=== PATIENT | male | born 2000 | race Caucasian/White ===

== ENCOUNTER 2022-10-25 12:33 | Day surgery (SDC) | payer BC, OTHER ==
[~2022-10-25] VITALS: Ht 185.4 cm; Wt 76.7 kg
[~2022-10-25 12:33] MED LIST: FAMO20TA5 PO; NS 1,000 ML IV ONE; OMEP40CA5 PO
[2022-10-25] MEDS ORDERED: fentaNYL 100 MCG/2 ML INJECTION As Ordered ONE (14:57)
[2022-10-25] MEDS ORDERED: LIDOCAINE 2% 100MG/5ML SDV (FOR ANES.) As Ordered ONE (14:57)
[2022-10-25] MEDS ORDERED: propofoL 200 MG/20 ML VIAL As Ordered ONE ×2 (14:57→15:02)
[2022-10-25 15:35] VITALS: BP 139/83
== END 2022-10-25 15:46 | disposition home or self-care (01) ==
LOC: M OPP 12:33
PROVIDERS: ATTEND Internal Medicine Gastroenterology
DX: K29.70 Gastritis, unspecified, without bleeding (principal); R12 Heartburn; Z79.899 Other long term (current) drug therapy
CPT/HCPCS: 43239; 88305; J3010

== ENCOUNTER → 2022-12-18 | Outpatient (CLI) | payer BC, OTHER ==
[~2022-12-18] MED LIST changes: +GLUCAGON INJ 1MG VIAL As Ordered ONE; +ISOVUE-370 76% 100ML VIAL As Ordered ONE; +NEULUMEX 0.1% SUSPENSION 450ML BOTTLE (FORMERLY VOLUMEN) As Ordered ONE; -NS 1,000 ML IV ONE
== END ==
LOC: M RAD 07:34
PROVIDERS: ATTEND Physician Assistant Medical
DX: R63.4 Abnormal weight loss (principal); R10.84 Generalized abdominal pain; R14.0 Abdominal distension (gaseous)
CPT/HCPCS: 74177; J1610; Q9967

== ENCOUNTER → 2023-01-03 | Outpatient (CLI) | payer BC, OTHER ==
[~2023-01-03] MED LIST changes: -GLUCAGON INJ 1MG VIAL As Ordered ONE; -ISOVUE-370 76% 100ML VIAL As Ordered ONE; -NEULUMEX 0.1% SUSPENSION 450ML BOTTLE (FORMERLY VOLUMEN) As Ordered ONE
[2023-01-03 17:16] LABS: THYROID STIMULATING HORMONE 2.1 uIU/ML (0.55-4.78)
[2023-01-03 17:17] LABS: FREE T4 1.39 NG/DL (0.89-1.76)
== END ==
LOC: M LAB 15:33
PROVIDERS: ATTEND Physician Assistant Medical
DX: R63.4 Abnormal weight loss (principal)

== ENCOUNTER → 2023-02-06 | Outpatient (CLI) | payer BC, OTHER | LOC: M RAD 12:18 | PROVIDERS: ATTEND Internal Medicine | DX: K21.9 Gastro-esophageal reflux disease without esophagitis (principal); R63.4 Abnormal weight loss; R68.81 Early satiety | CPT/HCPCS: 78264; A9541 ==